=== PATIENT | female | born 1985 | race Caucasian/White ===

== ENCOUNTER 2021-01-10 13:32 | Outpatient (REF) | payer OTHER, SELFPAY ==
--- NOTE | ~2021-01-10 | XR_ITS ---
EXAMINATION: XR ANKLE, RIGHT CLINICAL INFORMATION: Unspecified injury of the right ankle. COMPARISON: None TECHNIQUE: AP, lateral, and mortise views of the right ankle. FINDINGS: The bones are normal. No fracture. Alignment is anatomic. Joint spaces are maintained. No joint effusion. Mild soft tissue swelling is noted along the anterior aspect of the ankle joint. Minimal enthesopathy is noted at the insertional site of the Achilles tendon to the calcaneus. XR/XR ankle RT min 3V IMPRESSION: No radiographic evidence of any acute fracture, subluxation or dislocation identified. Mild soft tissue swelling along the anterior aspect of the right ankle.
== END 2021-01-10 13:33 | disposition home or self-care (01) ==
LOC: HO.HMGCX 13:32
PROVIDERS: PCP Internal Medicine; Visit Provider Physician Assistant Medical
DX: S99.911D Unspecified injury of right ankle, subsequent encounter (principal)
CPT/HCPCS: 73610

== ENCOUNTER 2022-05-24 15:46 | Emergency (ER) | payer OTHER, SELFPAY ==
[2022-05-24 15:58] VITALS: BP 128/85; PULSE 75; RESP 16; TEMP 36.8; O2SAT 98; BMI 30.8
--- NOTE | 2022-05-24 16:01 | ED_ITS ---
HPI - General Adult General Chief complaint: Upper Respiratory Symptoms Stated complaint: sore throat Time Seen by Provider: 05/24/22 16:00 Source: patient and RN notes reviewed Mode of arrival: ambulatory Limitations: no limitations History of Present Illness HPI narrative: 36-year-old female presents for evaluation of sore throat and right ear pain. Patient reports sore throat since Saturday, 4 days ago. She reports that she went to urgent care and had a negative strep test, COVID test. She was not prescribed any antibiotics. Yesterday and last night she started to developed right ear pain and feels as th ough her pain is getting worse Denies any fevers or chills Related Data Previous Rx's Medication Instructions Recorded azithromycin 250 mg tablet See Rx Instructions PO .COMPLEX #6 05/24/22 tabs Allergies Allergy/AdvReac Type Severity Reaction Status Date / Time amoxicillin Allergy Intermediate rash Verified 05/24/22 16:01 Review of Systems Constitutional: Constitutional: Reports as per HPI, Denies chills, Denies fever(s) and Denies headache(s) ENT: Denies headache(s) Cardiovascular: Cardiovascular: Denies chest pain and Denies dyspnea Respiratory: Respiratory: Denies cough and Denies dyspnea Neurologic: Denies headache(s) PMFSH Social History Social History Patient Tobacco Use Status: Never used Tobacco Physical Exam ED Const General: healthy appearing, comfortable, no acute distress, alert and awake Nutritional Appearance: well nourished Orientation/consciousness: patient oriented x3 HENMT Other: Right TM with middle ear effusion but no erythema, perforation. Left TM without erythema or effusion. No mastoid tenderness or periauricular edema bilaterally. Head: Yes normocephalic and Yes atraumatic Throat: Yes tonsils normal and Yes other (Right posterior pharynx erythema. No peritonsillar abscess) Eyes Eyelids: Yes eyelids normal Conjunctivae: conjunctivae normal Sclerae: sclerae normal Corneas: corneas normal Pupils: Equal, round and reactive pupils present EOM: EOMs intact bilaterally Neck Neck: Yes full ROM Resp Effort & Inspection: normal respiratory effort, able to speak in complete sentences, no audible wheezes and not labored Auscultation: clear to auscultation bilaterally Cardio Rate: regular rate Rhythm: regular rhythm GI Inspection: No distended Palpation (GI): Soft to palpation, not firm, nontender, no guarding and not rigid Auscultation: normoactive bowel sounds Skin General skin exam: no rashes or lesions noted and elasticity normal Neuro General: patient oriented x3 Cranial nerves: Yes CN's II-XII intact bilaterally, Yes Equal, round and reactive pupils present and Yes Bilaterally intact EOM present Cognition (Neuro): normal cognition Extrem Other: Moving all extremities well without any obvious deformities Medical Decision Making Medical Decision Making MDM Narrative: Patient has been trying [id number] medications without improvement for the last 4 days. Despite her negative strep test, we will cover with antibiotics given the amount of positive strep tests we have seen in the last week. Patient has allergy to amoxicillin will treat with azithromycin Differential Diagnosis Strep pharyngitis Exudative pharyngitis Otitis media Otitis externa Viral syndrome Discharge Plan Discharge Clinical Impression: Pharyngitis Patient Disposition: Home, Self-Care Additional Instructions: Take azithromycin as directed. You may also use Motrin/Tylenol for any pain You should do your toothbrush out after you finished your last antibiotic Prescriptions: New azithromycin 250 mg tablet See Rx Instructions .ROUTE .COMPLEX Qty: 6 0RF Rx Instructions: For 250 mg dose pack: take 500 mg today (day 1), then 250 mg for 4 days (days 2-5) Stand Alone Forms: Work/School Release
== END 2022-05-24 16:11 | disposition home or self-care (01) ==
PROVIDERS: Emergency Provider Emergency Medicine; PCP Nurse Practitioner Adult Health
DX: J02.9 Acute pharyngitis, unspecified (principal)
CPT/HCPCS: 99282; 99283

== ENCOUNTER 2025-02-12 20:17 | Emergency (ER) | payer OTHER, SELFPAY ==
--- NOTE | ~2025-02-12 | US_ITS ---
CLINICAL HISTORY: LLE pain swell preg Venous duplex ultrasound left lower extremity Comparison: None provided Findings: The visualized deep veins are fully compressible with normal Doppler color flow and spectral tracings. No popliteal cyst. IMPRESSION: 1. Negative for left lower extremity deep vein thrombosis. This document has been electronically signed by: Jose East MD on 02/12/2025 21:41:43
[2025-02-12 20:26] VITALS: BP 142/82; PULSE 98; RESP 18; TEMP 36.7; O2SAT 99; BMI 34.4
[2025-02-12 20:54] LABS: MANUAL DIFF FLAG NO
[2025-02-12 20:55] LABS: Hematocrit 29.1 % (37.0-47.0); Hemoglobin 9.1 g/dl (12.0-16.0); Imm Gran Abs Auto 0.05 X10*3/uL (0.00-0.03); Imm Gran Pct Auto 0.6 % (0.0-0.4); Lymphocytes Absolute Auto 1.2 X10*3/uL (1.2-4.9); Mean Corpuscular HGB Conc 31.3 g/dl (31.0-35.0); Mean Corpuscular Hemoglobin 22.1 pg (27.0-33.0); Mean Corpuscular Volume 70.6 fL (80.0-98.0); NRBC Abs Auto 0.000 X10*3/uL (0.0-0.012); NRBC Pct Auto 0.0 /100WBC (0.0-0.2); Platelet Count 230 X10*3/uL (160-400); Red Blood Count 4.12 X10*6/uL (4.20-5.50); White Blood Count 8.6 X10*3/uL (4.8-10.8)
--- NOTE | 2025-02-12 21:04 | ED.LOWEXIN ---
HPI - Extremity Injury (Lower) General Chief Complaint: Extremity Injury, Lower Stated Complaint: 23 wks left leg pain 3days Time Seen by Provider: 02/12/25 21:02 History of Present Illness ED Provider: tabitha HPI Narrative: 39 F p/w L leg pain. 23 wk . No injury. no edema. Sent by OB for DVT exclusion. Related Data Previous Rx's ?Medication ?Instructions ?Recorded azithromycin 250 mg tablet See Rx Instructions PO .COMPLEX #6 05/24/22 tabs Allergies Allergy/AdvReac Type Severity Reaction Status Date / Time amoxicillin Allergy Intermediate rash Verified 02/12/25 20:28 [facility] Social History Social History Patient Tobacco Use Status: Never used Tobacco Advance Directives: No Advance Directives Information Provided: Yes Physical Exam Vital Signs: Vital Signs: Last Vital Signs Temp 98.0 F 02/12/25 20:26 Pulse 98 02/12/25 20:26 Resp 18 02/12/25 20:26 BP 142/82 H 02/12/25 20:26 Pulse Ox 99 02/12/25 20:26 O2 Del Method Room Air 02/12/25 20:26 BMI result Body Mass Index 34.4 Medical Decision Making Medical Decision Making [facility] Narrative: I received sign-out from my colleague Dr. Aranda -ultrasound of the lower extremity is negative for DVT. Results were discussed with the patient. Patient's hemoglobin is a bit on the lower side. Patient states that she is aware that she has been anemic throughout her , patient states that she takes daily iron and magnesium. Lab Data [facility] Lab Attestation statement: I reviewed the patient's lab results. 02/12/25 20:46 02/12/25 20:46 Labs: Lab Results 02/12/25 Range/Units 20:46 WBC 8.6 (4.8-10.8) X10*3/uL RBC 4.12 L (4.20-5.50) X10*6/uL Hgb 9.1 L (12.0-16.0) g/dl Hct 29.1 L (37.0-47.0) % MCV 70.6 L (80.0-98.0) fL MCH 22.1 L (27.0-33.0) pg MCHC 31.3 (31.0-35.0) g/dl RDW 17.7 H (11.0-16.0) % Plt Count 230 (160-400) X10*3/uL MPV 9.3 L (9.4-12.3) fL Immature Gran % (Auto) 0.6 H (0.0-0.4) % Neut % (Auto) 73.1 H (45-73) % Lymph % (Auto) 14.4 L (20-40) % Mills % (Auto) 8.1 (2-11) % Eos % (Auto) 3.3 (0-4) % Baso % (Auto) 0.5 (0-2) % Lymph # (Auto) 1.2 (1.2-4.9) X10*3/uL Mills # (Auto) 0.7 (0.1-1.2) X10*3/uL Eos # (Auto) 0.3 (0.0-0.4) X10*3/uL Baso # (Auto) 0.0 (0.0-0.2) X10*3/uL Abs Immat Gran (auto) 0.05 H (0.00-0.03) X10*3/uL Absolute Neuts (auto) 6.3 (2.0-8.3) x10*3/uL Absolute Nucleated RBC 0.000 (0.0-0.012) X10*3/uL Nucleated RBC % (auto) 0.0 (0.0-0.2) /100WBC Sodium 138 (135-145) mmol/L Potassium 3.7 (3.3-5.1) mmol/L Chloride 109 H (96-108) mmol/L Carbon Dioxide 23 (22-29) mmol/L Anion Gap 10 L (12-20) BUN 10 (9-16) mg/dL Creatinine 0.57 (0.5-1.4) mg/dL Estim Creat Clear Calc 135.5 Estimated GFR > 60 Random Glucose 95 (60-115) mg/dL Calcium 9.3 (8.4-10.2) mg/dL Total Bilirubin 0.2 (0.0-1.0) mg/dL AST 16 (5-31) U/L ALT 17 (0-31) U/L Alkaline Phosphatase 86 (39-117) U/L Total Protein 6.8 (6.5-8.0) g/dL Albumin 3.8 (3.5-5.0) g/dL Independent Interpretation I performed an independent interpretation of an: Ultrasound Radiology Impression Discussion of test interpretation with radiology: I have reviewed the radiologist's reading. Radiologist Impression: The visualized deep veins are fully compressible with normal Doppler color flow and spectral tracings. No popliteal cyst. IMPRESSION: 1. Negative for left lower extremity deep vein thrombosis. Discharge Plan Discharge Clinical Impression: Acute leg pain Patient Disposition: Home, Self-Care Instructions: Leg Pain (ED) Additional Instructions: If you continue to have leg pain, swelling or worsening symptoms we recommend having your OB send you for a repeat radiology DVT ultrasound in 1 week. Prescriptions: No Action azithromycin 250 mg tablet See Rx Instructions .ROUTE .COMPLEX Qty: 6 0RF Rx Instructions: For 250 mg dose pack: take 500 mg today (day 1), then 250 mg for 4 days (days 2-5) Print Language: Bhutanese
[2025-02-12 21:14] LABS: Alanine Aminotransferase 17 U/L (0-31); Albumin Level 3.8 g/dL (3.5-5.0); Alkaline Phosphatase 86 U/L (39-117); Anion Gap 10 (12-20); Aspartate Amino Transferase 16 U/L (5-31); Blood Urea Nitrogen 10 mg/dL (9-16); Calcium 9.3 mg/dL (8.4-10.2); Carbon Dioxide 23 mmol/L (22-29); Chloride 109 mmol/L (96-108); Creatinine Clr Calc Pharmacy 135.5; Estimated Glomerular Filt Rate > 60; Potassium 3.7 mmol/L (3.3-5.1); Sodium 138 mmol/L (135-145); Total Protein 6.8 g/dL (6.5-8.0)
--- OUTSIDE RECORDS SUMMARY | 2025-02-12 22:00 | XMS_ITS | Clinical Summary ---
Author Organization [facility] Address [address] [facility] [address] [place] [phone] Phone Care Team Providers Care Channel Rougher Name Role Phone Deanna Jansen [employer] Unavailable [phone] Ariadna Subramanian MD Unavailable [phone] Ariadna Subramanian MD Primary Care Provider Allergies Active Allergy Reactions Criticality Noted Date Comments Amoxicillin Rash Low 09/05/2016 Beef Containing Products 05/23/2022 Medications lisdexamfetamine (VYVANSE) 30 MG capsuleIndication s:Attention deficit disorder (ADD) without hyperactivity Take 1 capsule (30 mg total) by mouth every morning for 28 days. 28 capsule 5 03/02/20 25 Active lisdexamfetamine (VYVANSE) 30 MG capsuleIndication s:Attention deficit disorder (ADD) without hyperactivity Take 1 capsule (30 mg total) by mouth every morning for 28 days. 28 capsule 5 01/19/20 25 Discontinu ed(Reorder ) lisdexamfetamine (VYVANSE) 30 MG capsuleIndication s:Attention deficit disorder (ADD) without hyperactivity Take 1 capsule (30 mg total) by mouth every morning for 28 days. 28 capsule 5 02/03/20 25 Discontinu ed(Reorder ) Active Problems Problem Noted Date Diagnosed Date Acute bronchitis due to other specified organism s 09/29/2024 Assessment & Plan (09/29/2024 11:45 AM EDT): Recent treatment for acute bronchitis with Zpak and albuterol inhaler. Patient feeling well overall with only a lingering cough and intermittent mild wheezing. Continue albuterol inhaler as needed. We discussed trial of inhaled ICS if symptoms not entirely resolving in another 1-2 weeks. Patient verbalizes understanding and in agreement with plan. Overweight (BMI 25.0-29.9) 04/19/2023 Assessment & Plan (09/29/2024 11:45 AM EDT): Patient has done very well with Zepbound 12.5 mg weekly. Patient has noticed improvements in her esophagitis with weight loss. Continue current regimen. Assessment & Plan (09/27/2023 11:10 AM EDT): Patient has had good success with weight loss using Zepbound and improved eating habits and regular exercise. Continue current therapy and follow-up as needed. Assessment & Plan (04/19/2023 11:13 AM EST): Patient has struggled with obesity for years, having used Saxenda in the past with minimal benefit. Patient has been working out diligently at the gym and adhering to a low calorie, healthy diet but without significant weight loss. Will do trial of Zepbound 2.5 mg weekly. Patient instructed on use, side effects, and adverse effects. Start at 2.5 mg once weekly for 4 weeks, then increase to 5 mg once weekly. May increase dose in 2.5 mg/week increments every 4 weeks if needed to achieve glycemic goals (maximum weekly dose: 15 mg/week). F/u in 2 months, or sooner as needed. Patient verbalizes understanding and in agreement with plan. Female infertility 11/22/2021 Overview (11/22/2021): 0, regular monthly menses, she and partner trying for a year. Assessment & Plan (11/22/2021 4:44 PM EDT): Discussed in detail the steps of an infertility evaluation and ordered those including blood work and hysterosalpingogram. If there is an opportunity for her to have the sonohysterogram with the catheter used to it check for tubal patency, she can have that instead of hysterosalpingogram as it is less painful Partner semen analysis was ordered as he is a [facility] patient. Advise returning to the office after all tests are done or having telemedicine discussed neck steps, I reviewed with her our overview of infertility testing and some additional treatment steps. Commend she also make sure her insurance company cover testing and treatment and advised I will send a message to Rekha Moore RN to get in touch with her to help with coordination Family planning 11/22/2021 Overview (11/22/2021): No family history of defects or known genetic disorders, no at risk ethnicity known. Will discuss in more detail the option of genetic carrier screening, she should check to see if her insurance company covers that Routine family-planning labs ordered Eosinophilic esophagitis 04/25/2021 Assessment & Plan (09/29/2024 11:45 AM EDT): Stable, improved with weight loss. F/u with gastroenterology as needed. Assessment & Plan (09/27/2023 11:10 AM EDT): Stable off therapies. Overall improvement in symptoms with weight loss. F/u with gastroenterology as needed. Assessment & Plan (04/25/2021 9:38 PM EST): New diagnosis of eosinophilic esophagitis, for which patient is taking Protonix 40 mg daily. Continue current therapies and follow-up with immunology as scheduled. Attention deficit disorder (ADD) without hyperac tivity 04/25/2021 Assessment & Plan (09/29/2024 11:46 AM EDT): Stable, with use of Vyvanse 30 mg daily. Patient primarily uses this to assist with her work, taking drug vacations on the weekends. Controlled substance agreement updated in office today. Continue current therapy and follow-up in 6 months for routine monitoring. Assessment & Plan (09/27/2023 11:09 AM EDT): Stable, with use of Vyvanse 30 mg daily. Patient primarily uses this to assist with her work, taking drug vacations on the weekends. Controlled substance agreement updated in office today. Continue current therapy and follow-up in 6 months for routine monitoring. Assessment & Plan (04/19/2023 11:10 AM EST): Stable, with use of Vyvanse 30 mg daily. Patient primarily uses this to assist with her work, taking drug vacations on the weekends. Continue current therapy and follow-up in 6 months for routine monitoring. Assessment & Plan (04/25/2021 9:42 PM EST): Long history of disorganization and difficulty accomplishing tasks, although no diagnosis of ADD given to her in the past. She is starting to see these issues in both her work and home situations. Would recommend referral to Dr. Roa for neuropsych testing, but will also start on Vyvanse 20 mg daily for treatment of ADD. Patient instructed on medication use, side effects, adverse effects. We will plan to follow-up in 1 month for reevaluation and discussion of efficacy. Patient verbalizes understanding and in agreement with plan. Annual physical exam 08/26/2020 Assessment & Plan (09/29/2024 11:46 AM EDT): Generally well female. Up to date on immunizations and pap smear. No additional screenings recommended at this age. Encouraged healthy eating and regular exercise. Assessment & Plan (09/27/2023 11:09 AM EDT): Generally well female. Up to date on immunizations and pap smear. Patient will do fasting lab work at outpatient lab and will f/u by phone or PG message. No additional screenings recommended at this age. Encouraged healthy eating and regular exercise. Assessment & Plan (08/26/2020 9:56 AM EDT): Generally well female. Up to date on immunizations and pap smear. No additional screenings recommended at this age. Encouraged healthy eating and regular exercise. Low grade squamous intraepit helial lesion (LGSIL) on cervicovaginal cytologic smear 06/19/2017 Overview (03/23/2019): 03/11/19 Co-testing NILM/neg Assessment & Plan (03/11/2019 11:56 AM EST): Co-testing repeated today. Assessment & Plan (06/19/2017 10:21 AM EDT): Recent colposcopy reassuring. F/u with gynecology as planned. Nonspecific reaction to tuberculin test 06/20/19 Resolved Problems Problem Noted Date Diagnosed Date Resolved Date Screen for STD (sexually transmitted disease) 11/23/19 22 04/19/2023 Epigastric pain 08/26/2020 04/19/2023 Assessment & Plan (08/26/2020 9:55 AM EDT): Likely gastritis, improved with Prilosec. F/u with gastroenterology as scheduled. Diarrhea 08/26/2020 09/27/2023 Assessment & Plan (08/26/2020 9:56 AM EDT): Likely IBS, although upcoming appointment with gastroenterology to discuss further. Continue fiber supplementation. Mixed hyperlipidemia 08/26/2020 024 Assessment & Plan (04/19/2023 11:14 AM EST): Patient does struggle with elevated cholesterol, which would be benefited from weight loss. Will do fasting lipid prior to annual physical exam in 2 months. Assessment & Plan (04/25/2021 9:38 PM EST): Patient due to have follow-up fasting lipid panel, which she will do at outpatient lab. We will follow-up by phone or patient gateway message. Assessment & Plan (08/26/2020 9:58 AM EDT): Elevated LDLs and total cholesterol on recent lab work. May consider discussing diet with swatch folder. Repeat fasting lipid in 3 months with appointment afterwards. Pt verbalizes understanding and in agreement with plan. Depression with anxiety 06/15/202009/02 Assessment & Plan (08/26/2020 9:55 AM EDT): Improved, although not in remission. Will increase Wellbutrin to 150 mg in the morning and 75 mg in the evening x 2 weeks, then increase to 150 mg twice daily. Patient encouraged to f/u by PG message to discuss efficacy. Will f/u in 3 months for reevaluation. Pt verbalizes understanding and in agreement with plan. Assessment & Plan (07/13/2020 10:57 AM EDT): Some benefit in depression and anxiety with Wellbutrin 75 mg twice daily. Will plan to continue current regimen and follow-up in 6 weeks. May consider dose adjustment, or switching to extended release formulation at that time based on how she is doing. Patient verbalizes understanding and in agreement with plan. Assessment & Plan (06/15/2020 12:43 PM EDT): Worsening depression along with anxiety despite psychotherapy and conservative treatments. She would be open to pharmacologic treatments, although it is very concerned about weight gain. Decision made to treat with Wellbutrin 75 mg twice daily. We did discuss that in a small number of people who take Wellbutrin, this can sometimes make anxiety worse. Patient instructed on medication use, side effects, and adverse effects we will plan to follow-up in 3-4 weeks for reevaluation, or sooner as needed. Patient in agreement with plan. Voice hoarseness 06/19/2017 06/19/2017 Assessment & Plan (06/19/2017 10:23 AM EDT): Likely related to allergies vs silent GERD. Encouraged pt to try OTC antihistamine such as Claritin or Zyrtec. If no improvement, may consider trying OTC H2 Malu such as Zantac. If no improvement with these therapies, may consider referral to ENT for further evaluation. Pt verbalizes understanding and in agreement with plan. Encounters Date Type Department Care Team Description 02/02/2025 Refill [facility] [address] [place] [phone] Milagro Mercedes CMA Medication Refill (CSRP Vyvanse ) 01/18/2025 Refill [facility] [address] [facility] [address] [place] [address] Citro, Milagro, DIGITAL MARKETING ASSOCIATE Medication Refill (CSRP Vyvanse) 12/21/2024 Refill [facility] [address] [facility] [address] [place] [address] Citro, Milagro, DIGITAL MARKETING ASSOCIATE Medication Refill (CSRP Vyvanse ) 11/24/2024 Refill [facility] [address] [facility] [address] [place] [address] Citro, Milagro, DIGITAL MARKETING ASSOCIATE Medication Refill (CSRP Vyvanse) from Last 3 Months Immunizations Immunization Administration Dates Next Due COVID-19 (Pre-12/24) Moderna Vaccine, mRNA, PF 0 04/14/2020,03/07/2020 Influenza Quadrivalent Preservative Free IM 11/02,12/31/2019 Influenza Recombinant Luann valent Preservative Free IM 01/21/2019 Influenza Trivalent MDCK Preservative Free IM PPD Test 07/30/2012 Tdap 04/19/2023,07/30/2012 Varicella 10/01/2012 Family History Medical History Relation Comments Diabetes type II Brother 1 No Known Problems Brother 2 Diabetes Father Hypertension Father Stroke Maternal Grandfather No Known Problems Maternal Grandmother Oral cancer Maternal Uncle Lua's palsy Mother Diabetes type II Mother Heart failure Mother Hyperlipidemia Mother Overweight Mother Lung cancer Paternal Grandfather No Known Problems Paternal Grandmother Relation Status Comments Brother 1 Alive Brother 2 Alive Father Alive Maternal Grandfather Maternal Grandmother Alive Maternal Uncle Mother Alive Paternal Grandfather Paternal Grandmother Alive Social History Tobacco Use Types Packs/Day Years Used Date Smoking Tobacco: Never Smokeless Tobacco: Never Tobacco Cessation:Counseling Given: Not Answered Alcohol Use Standard Drinks/Week Comments Yes 0 (1 standard drink = 0.6 oz pure alcohol) 8-10 drinks per week; wine, beer, or vodka Child or Family Care Answer Date Record ed Do you have problems with on e of the following making it difficult for you to work, study, or receive health care? No 09/29/2024 Education Answer Date Recorded Are you interested in help w ith more adult education (for example, completing high school, GED, job training, learning the [place] language, technical skills, or developing parenting skills)? No 09/29/2024 Are you concerned about learning? Not on file 09/29/2024 No 09/29/2024 Yes 09/29/2024 Food Answer Date Recorded Within the past 6 months we worried whether our food would run out before we got money to buy more. Never True 09/29/2024 Within the past 6 months the food we bought just didn't last and we didn't have enough money to get more. Never True Residential Stability Answer Date Recor ded What is your housing situation today? I have mahad sing 09/29/2024 How many times have you move d in the past 12 months? Zero (I did not move) 09/29/2024 Paying for Meds Answer Date Recorded Do you have trouble paying for medicines? No 09/29/2024 Paying Utility Bills Answer Date Record ed Do you have trouble paying your heating or elect ricity bill? No 09/29/2024 Transportation Answer Date Recorded Has the lack of transportati on kept you from medical appointments or from getting medications? No 09/29/2024 Unemployment Answer Date Recorded Are you currently unemployed or working on a part-time or temporary basis, and looking for work? No 09/29/2024 Digital Access Answer Date Recorded No 09/29/2024 Yes 09/29/2024 Do you have reliable internet access at home? Ye s 09/29/2024 Do you have a device (e.g., phone, tablet, computer) with a working camera? Yes 09/29/2024 Intimate Partner Violence Answer Date R ecorded Denied Basic Needs Not on file 09/29/2024 In the past 12 months have y ou been in a relationship with a person who hurts, threatens, or tries to control you? No 09/29/2024 Worried food would run out Not on file 09/29 In the past 12 months have y ou been in a relationship with a person who hurts, threatens, or tries to control you? 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 [employer] Not on file Not on file Not on file Last Filed Vital Signs Vital Sign Reading Time Taken Comments Blood Pressure 112/62 10/08/2024 9:29 AM EDT Pulse 88 09/29/2024 11:15 AM EDT Temperature 36.9 C (98.4 F) 09/29/2024 11:15 AM EDT Respiratory Rate 18 05/23/2022 2:23 PM EDT Oxygen Saturation 99% 09/29/2024 11:15 AM EDT Inhaled Oxygen Concentration - - Weight 67.7 kg (149 lb 3.2 oz) 10/08/2024 9:29 A M EDT Height 160.6 cm (5' 3.23 ) 09/29/2024 11:15 AM E DT Body Mass Index 26.24 09/29/2024 11:15 AM EDT Plan of Treatment Upcoming Encounters Date Type Department Care Team (Late st Contact Info) Description 10/01/2025 11:00 AM EDT Office Visit [facility] [address] [facility] [address] [place] [phone] Deanna Jansen, [employer] [address] [facility] [address] [place] [phone] [email or web address] Health Maintenance Due Date Last Done Comments COLOGUARD 01/25/2025 FIT TEST 01/25/2025 FOBT 01/25/2025 SIGMOIDOSCOPY 01/25/2025 VIRTUAL COLONOSCOPY 01/25/2025 PAP SMEAR 05/08/2025 05/08/2022, 10/2019, 03/11/2019 DEPRESSION SCREENING 09/29/2025 09/29/2024 SCREENING FOR DIABETES 09/26/2026 09/27/2023 COLONOSCOPY 09/28/2031 09/27/2021 COLORECTAL CANCER SCREENING 09/28/2031 Adult Td,Tdap Booster 04/19/2033 04/19/2023, 013 HEPATITIS C SCREENING Completed 04/20/2022 , 04/20/2022, 08/12/2020 HIV ONE-TIME SCREENING (18-65 YEARS) Completed 04/20/2022, 10/12/2014 SMOKING STATUS SCREENING (Once After 26 Yrs) Completed 10/08/2024 INFLUENZA VACCINE Completed 10/27/2024, , 12/31/2019, Additional history exists HEPATITIS A VACCINES Aged Out No long er eligible based on patient's age to complete this topic HIB VACCINES Aged Out No longer eligi ble based on patient's age to complete this topic MENINGOCOCCAL VACCINES (ACWY) Aged Out No longer eligible based on patient's age to complete this topic MENINGOCOCCAL VACCINES (B) Aged Out N o longer eligible based on patient's age to complete this topic PNEUMOCOCCAL VACCINES (0-49 years) Aged Out No longer eligible based on patient's age to complete this topic Medical Devices Not on file Procedures Procedure Name Priority Date/Time Associated Diagnosis Comments PAP SMEAR FOR RESULT ENTRY ONLY Routine 05/08/2022 HEPATITIS C ANTIBODY, QUALITATIVE Routine 04/20/2022 12:29 PM EST Screen for STD (sexually transmitted disease) COLONOSCOPY FOR RESULT ENTRY ONLY Routine 09/27/2021 OUTSIDE HIV Routine 10/12/2014 from Last 3 Months or Most Recently Relevant to Health Maintenance Results * PAP SMEAR FOR RESULT ENTRY ONLY (05/08/2022) Pap smear normal; HPV negative us [place] Provider HEALTH MAINTENANCE Final Result * Hepatitis C antibody, qualitative (04/20/2022 12:29 PM EST) HCV NON-REACTIV E NON-REACTI VE [facility] Blood 04/20/2022 12:2 9 PM EST 04/20/2022 12:34 PM EST us Debbi Batista MD LAB BLOOD BKR ORDERABLES Final R esult [address] [id number] * COLONOSCOPY FOR RESULT ENTRY ONLY (09/27/2021) us Historical Provider HEALTH MAINTENANCE Edited Result - Final * OUTSIDE HIV TEST (10/12/2014) HIV - External Neg us Historical Provider LAB BLOOD ORDERABLES Sabine l Result from Last 3 Months or Most Recently Relevant to Health Maintenance Insurance [facility] [place] [address] [place] [address] [facility] Care Teams Channel Rougher Relationship Specialty Start Date End Date Ariadna Subramanian MD [address] [place] [phone] [email or web address] PCP - General Internal Medicine 02/20/17 Deanna Jansen, KISHOR [address] [place] [phone] Historical LMR Provider 12/17/16 Ariadna Subramanian MD [address] [place] [phone] Historical LMR Provider 12/17/16 Additional Source Comments The information contained in this document represents components of the legal health record. It is not the complete legal health record.[facility]
--- OUTSIDE RECORDS SUMMARY | 2025-02-12 22:00 | XMS_ITS | Encounter Summary ---
Author Organization [facility] Address [address] [facility] [address] [place] [id number] Phone Care Team Providers Care Tool Room Attendant Name Role Phone Lugo, Mae Rodrigez SUPERVISOR CELL OPERATION Unavailable Delaney Pitts SUPERVISOR CELL OPERATION Unavailable Marika Caballero SUPERVISOR CELL OPERATION Unavailable [phone] Deanna Jansen [facility] ATTENDANT Unavailable Ariadna Subramanian MD Unavailable Debbi Batista MD Unavailable Ralph Faria MD Unavailable Unavailable Marek Gonzalez MD Unavailable [phone] Ariadna Subramanian MD Primary Care Provider Encounter Details Date Type Department Care Team (Latest Contact Info) Description 01/02/2021 Transcribe Orders Virtual Department [address] [place] [address] Charly Arreguin MD [address] [place] [address] [phone] Encounter for preoperative screening laboratory testing for COVID-19 virus (Primary Dx) Social History Tobacco Use Types Packs/Day Years Used Date Smoking Tobacco: Never Smokeless Tobacco: Never Alcohol Use Standard Drinks/Week Comments Yes 0 (1 standard drink = 0.6 oz pure alcohol) 8-10 drinks per week; wine, beer, or vodka Child or Family Care Answer Date Record ed Do you have problems with on e of the following making it difficult for you to work, study, or receive health care? No 08/22/2020 Education Answer Date Recorded Are you interested in help w ith more adult education (for example, completing high school, GED, job training, learning the Beninese language, technical skills, or developing parenting skills)? No 08/22/2020 Food Answer Date Recorded Within the past 6 months we worried whether our food would run out before we got money to buy more. Never True 08/22/2020 Within the past 6 months the food we bought just didn't last and we didn't have enough money to get more. Never True Residential Stability Answer Date Recor ded What is your housing situation today? I have mahad logan 08/22/2020 How many times have you move d in the past 12 months? Zero (I did not move) 08/22/2020 Paying for Meds Answer Date Recorded Do you have trouble paying for medicines? No 08/22/2020 Paying Utility Bills Answer Date Record ed Do you have trouble paying your heating or elect ricity bill? No 08/22/2020 Transportation Answer Date Recorded Has the lack of transportati on kept you from medical appointments or from getting medications? No 08/22/2020 Unemployment Answer Date Recorded Are you currently unemployed or working on a part-time or temporary basis, and looking for work? 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 Not on file Not on file documented as of this encounter Plan of Treatment Upcoming Encounters Date Type Department Care Team (Late st Contact Info) Description 10/01/2025 11:00 AM EDT Office Visit [facility] [place] [facility] [address] [address] Deanna Jansen CNP 14 [facility] [address] [place] [address] [email or web address] documented as of this encounter Results * COVID-19 PCR Order (01/08/2021 4:29 PM EST) COVID-19 Comment [id number] [facility] COVID Testing Status [place] [facility] Other 01/08/2021 4:29 PM EST 01/09/2021 2:16 PM EST us Charly Arreguin MD LAB GENERAL ORDERABLES Final Result [facility] [address] [place] [address] documented in this encounter Visit Diagnoses Diagnosis Encounter for preoperative screening laboratory testing for COVID-19 virus- Primary documented in this encounter Additional Health Concerns Infection Onset Date Last Indicated Resolved Time CoV-Risk 08/22/2021 08/22/2021 09/02/2021 1:22 AM EDT COVID-19 06/12/2022 06/12/2022 07/03/2022 1:21 AM EDT Assessment Noted Time PHQ-2 Depression Total Score: 1 08/23/19 7:15 PM EDT documented as of this encounter Care Teams Tool Room Attendant Relationship Specialty Start Date End Date Ariadna Subramanian MD 14 [facility] [address] [place] [id number] [email or web address] PCP - General Internal Medicine 02/20/17 Mae Lugo NP 30 [place] [address] Historical LMR Provider 12/17/16 2 Delaney Pitts NP [address] [place] [address] [place] [phone] Historical LMR Provider 12/17/16 2 Marika Caballero NP 30 [place] [address] [email or web address] Historical LMR Provider 12/17/16 03/11/21 Deanna Jansen CNP [address] [place] [address] [email or web address] Historical LMR Provider 12/17/16 Ariadna Subramanian MD [address] [address] [email or web address] Historical LMR Provider 12/17/16 Debbi Batista MD [address] [address] Historical LMR Provider 12/17/16 03/11/21 Ralph Faria MD Historical LMR Provider 12/17/16 03/11/21 Marek Gonzalez MD [address] [place] [address] Historical LMR Provider 12/17/16 2 documented as of this encounter Additional Source Comments The information contained in this document represents components of the legal health record. It is not the complete legal health record.[facility]
--- OUTSIDE RECORDS SUMMARY | 2025-02-12 22:00 | XMS_ITS ---
Author Name [facility] Organization Unknown Care Team Organization Name Specialty Phone Email Start Date End Da [facility] 05/17/2023
--- OUTSIDE RECORDS SUMMARY | 2025-02-12 22:00 | XMS_ITS | Encounter Summary ---
Author Organization [facility] Address [address] [facility] [address] [place] [address] Phone Care Team Providers Care Chain Sales Representative Name Role Phone Deanna Jansen MACHINE TACK PULLER Unavailable [phone] Ariadna Subramanian MD Unavailable [phone] Ariadna Subramanian MD Primary Care Provider [phone] Encounter Details Date Type Department Care Team (Late st Contact Info) Description 12/26/2022 Transcribe Orders Virtual Department 30 [place] [address] Rekha Cantor MD [address] [facility] [address] [place] [address] Uterine anomaly (Primary Dx) Social History Tobacco Use Types [...] Answer Date Recorded Are you interested in more education? Not on lucio e 08/28/2022 Are you concerned about learning? Not on file 08/28/2022 No 08/28/2022 No 08/28/2022 Food Answer Date Recorded Within the past [...] basis, and looking for work? No 08/22/2020 Digital Access Answer Date Recorded No 07/27/2022 No 07/27/2022 Reliable internet access at home? Not on file 07/27/2022 Device with a working camera? 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 [employer] Not on file Not on file Not on file documented as of this encounter Plan of Treatment Upcoming Encounters Date Type Department Care Team (Late st Contact Info) Description 10/01/2025 11:00 AM EDT Office Visit [facility] [place] [facility] 14 [facility] [address] [place] [address] Deanna Jansen, KISHOR 14 [facility] [address] [place] [address] documented as of this encounter Results * US Kidneys (12/31/2022 10:59 AM EDT) Anatomical Region Laterality Modality Abdomen, Kidney Ultrasound 12/31/2022 1:48 PM EDT Impressions 12/31/2022 1:50 PM EDT Normal sonographic appearance of the bilateral kidneys. Narrative 12/31/2022 1:50 PM EDT US KIDNEYS History: Uterine anomaly, didelphys uterus TECHNIQUE: Kidney Ultrasound. COMPARISON: There is no prior study available for comparison. FINDINGS: Right Kidney: Size: 10.5 cm Normal corticomedullary differentiation and cortical thickness. No stones or hydronephrosis. Left Kidney: Size: 11.1 cm Normal corticomedullary differentiation and cortical thickness. No stones or hydronephrosis. Bladder: The urinary bladder is physiologically distended. Ureteral jets are unable to be demonstrated. Procedure Note Obdulia Peraza MD - 12/31/2022 US KIDNEYS History: Uterine anomaly, didelphys uterus TECHNIQUE: Kidney Ultrasound. COMPARISON: There is no prior study available for comparison. FINDINGS: Right Kidney: Size: 10.5 cm Normal corticomedullary differentiation and cortical thickness. No stonesor hydronephrosis. Left Kidney: Size: 11.1 cm Normal corticomedullary differentiation and cortical thickness. No stonesor hydronephrosis. Bladder: The urinary bladder is physiologically distended. Ureteral jetsare unable to be demonstrated. IMPRESSION: Normal sonographic appearance of the bilateral kidneys. Rekha Cantor MD IM US RENAL Final Result documented in this encounter Visit Diagnoses Diagnosis Uterine anomaly- Primary Uterine anomaly documented in this encounter Additional Health Concerns Assessment Noted Time PHQ-2 Depression Total Score: 1 08/23/19 21 7:15 PM EDT documented as of this encounter Care Teams Chain Sales Representative Relationship Specialty Start Date End Date Ariadna Subramanian MD [address] [place] [address] [address] [place] [address] [email or web address] PCP - General Internal Medicine 02/20/17 Deanna Jansen, MACHINE TACK PULLER [address] [place] [address] [address] [place] [address] [email or web address] Historical LMR Provider 12/17/16 Ariadna Subramanian MD [address] [place] [address] [address] [place] [address] [email or web address] Historical LMR Provider 12/17/16 documented as of this encounter Additional Source Comments The information contained in this document represents components of the legal health record. It is not the complete legal health record.[facility]
--- OUTSIDE RECORDS SUMMARY | 2025-02-12 22:00 | XMS_ITS | Clinical Summary ---
Author Organization [facility] Address [address] [place] [address] Care Team Providers Care Title I Math Tutor Name Role Phone Deanna Jansen Primary Care Provider [phone] Allergies Active Allergy Reactions Criticality Noted Date Comments Amoxicillin Rash Low 09/05/2016 Medications tirzepatide, weight loss, (ZEPBOUND) 5 mg/0.5 mL Pen Injector Inject 5 mg under the skin. 05/22/2023 Active Resolved Problems Problem Noted Date Diagnosed Date Resolved Date Diarrhea 08/26/2020 06/07/2023 Overview (06/07/2023): Last Assessment & Plan: Likely IBS, although upcoming appointment with gastroenterology to discuss further. Continue fiber supplementation. Social History Tobacco Use Types Packs/Day Years Used Date Smoking Tobacco: Never Smokeless Tobacco: Never Tobacco Cessation:Counseling Given: Not Answered Alcohol Use Standard Drinks/Week Comments Yes 0 (1 standard drink = 0.6 oz pur e alcohol) occas Comments No Sex and Gender Information Value Date Recorded Sex Assigned at Not on file Legal Sex Female 8:08 AM EST Gender Identity Not on file Sexual Orientation Not on file Last Filed Vital Signs Vital Sign Reading Time Taken Comments Blood Pressure 111/72 06/07/2023 3:44 PM EDT Pulse 69 06/07/2023 3:44 PM EDT Temperature 36.6 C (97.9 F) 06/07/2023 2:44 PM EDT Respiratory Rate 16 06/07/2023 3:44 PM EDT Oxygen Saturation 98% 06/07/2023 3:44 PM EDT Inhaled Oxygen Concentration - - Weight 84.9 kg (187 lb 3.2 oz) 06/07/2023 11:09 AM EDT Height 160 cm (5' 3 ) 06/03/2023 2:50 PM EDT Body Mass Index 33.16 06/03/2023 2:50 PM EDT Plan of Treatment Not on file Insurance [employer] Advance Directives For more information, please contact: [phone] Documents on File Type Date Recorded Patient Rn Testing Expl anation Advance Directives 06/12/2023 9:18 AM Care Teams Title I Math Tutor Relationship Specialty Start Date End Date Deanna Jansen [address] [place] [phone] PCP - General Primary Care 05/15/23
[2025-02-12 22:57] VITALS: BP 142/82; PULSE 98; RESP 18; TEMP 36.7; O2SAT 99
== END 2025-02-12 23:21 | disposition home or self-care (01) ==
PROVIDERS: Emergency Medicine; Emergency Provider Emergency Medicine; PCP Internal Medicine
DX: O26.892 Other specified pregnancy related conditions, second trimester (principal); M79.662 Pain in left lower leg; Z3A.23 23 weeks gestation of pregnancy
CPT/HCPCS: 36415; 80053; 85025; 93971; 99282; 99284

== ENCOUNTER → 2025-02-12 20:48 | Outpatient (BNV) | payer OTHER, SELFPAY | PROVIDERS: Emergency Provider Emergency Medicine; PCP Internal Medicine; Visit Provider Radiology Diagnostic Radiology | DX: M79.662 Pain in left lower leg (principal); M79.89 Other specified soft tissue disorders | CPT/HCPCS: 93971 ==